=== PATIENT | male | born 1990 | race Caucasian/White ===

== ENCOUNTER 2017-03-08 13:55 | Inpatient (IN) | payer BC, OTHER ==
[~2017-03-08] VITALS: Ht 180.3 cm; Wt 79.4 kg
[2017-03-08] MEDS ORDERED: MYCO500T PO (14:31)
[2017-03-08] MEDS ORDERED: PRED2.5T PO (14:33)
[2017-03-08] MEDS ORDERED: TACR1CAP PO (14:35)
[2017-03-08] MEDS ORDERED: ONDANSETRON ODT 4 MG TAB.RAPDIS SL PRN (14:45)
[2017-03-08] MEDS ORDERED: MAG HYDROX/AL HYDROX/SIMETH 30 ML LIQUID UDC PO PRN (14:45)
[2017-03-08] MEDS ORDERED: ACETAMINOPHEN 325 MG TABLET PO PRN (14:45)
[2017-03-08] MEDS ORDERED: LORAZEPAM 2 MG/1 ML VIAL IM PRN (14:45)
[2017-03-08] MEDS ORDERED: ONDANSETRON 4 MG/2 ML VIAL IM PRN (14:45)
[2017-03-08] MEDS ORDERED: DICYCLOMINE HCL 20 MG TABLET PO PRN (14:45)
[2017-03-08] MEDS ORDERED: LOPERAMIDE HCL 2 MG CAPSULE PO PRN ×2 (14:45)
[2017-03-08] MEDS ORDERED: LORAZEPAM 1 MG TABLET PO PRN (14:45)
[2017-03-08] MEDS ORDERED: IBUPROFEN 400 MG TABLET PO PRN (14:45)
[2017-03-08] MEDS ORDERED: THIAMINE HCL 200 MG/2 ML VIAL IM ONE (14:45)
[2017-03-08] MEDS ORDERED: MAGNESIUM HYDROXIDE 30 ML LIQUID UDC PO PRN (14:45)
[2017-03-08] MEDS ORDERED: MIRALAX 17 GM POWD.PACK PO PRN (14:45)
[2017-03-08 14:46] VITALS: BP 136/88
[2017-03-08 15:30] LABS: *AMPHETAMINE, URINE NEGATIVE (NEGATIVE); *BARBITURATE, URINE NEGATIVE (NEGATIVE); *CANNABINOID, URINE POSITIVE (NEGATIVE); *COCCAINE, URINE NEGATIVE (NEGATIVE); *OPIATE, URINE NEGATIVE (NEGATIVE); *PHENCYCLIDINE SCREEN,URINE NEGATIVE (NEGATIVE)
--- NOTE | 2017-03-08 15:30 | NUR ---
ADMISSION NOTE Patient is 26 yr old male admitted at 15:00pm for supervised alcohol withdrawal. Patient is alert and oriented X4, full code, with NKA. On fall and seizure precaution (no history of seizure). Denies SOB, chest pain, skin is intact, gait is steady and ambulates independently. Patient reports history of kidney transplant in 2012. Patient has unknown family history as he is adopted and does not have any brothers or sisters. Patient is able to respond to questions, cooperative during the admission interview. Denies suicidal or homicidal ideation at this time. Initial CIWA is 7. Complained of nausea, tremors, body pain and diarrhea. Patient received PRN Ativan 1mg. Patient was oriented to unit, room and call lights, oriented to unit routines and activity groups, and provided with hygiene supplies. Pt stated he has no PCP at this time. Substance use history per patient report: 1) Alcohol - pt. reports last dose was today 03/08/17 and drank 2 shots of tequila and 1/2 bottle of red wine. Patient states he has been drinking 750ml-2.25L of wine daily X3 months . Pt. reports he started using at age 12. 2) Marijuana - pt. reports last dose was today 03/08/17 used 20mg of eligible and 1 joint. Pt. reports he started using at age 16. Rehab history: 1) [facility] in [place], [place] X30 days starting 06/25/15. 2) [facility] in [place] X6 months Dec-May 2016.
[2017-03-08 16:00] VITALS: BP 123/69
[2017-03-08] MEDS: LORAZEPAM 1 MG TABLET PO PRN ×2 (16:03→21:21)
--- NOTE | 2017-03-08 16:11 | NUR ---
PRN Pt with ciwa=7. Pt with some light perspiration on face and gross tremors of bilateral hands. Ativan 1mg po prn q2h ciwa 5-15 given and tolerated well.
[2017-03-08 16:49] LABS: BASOPHILS % (AUTO) 0.4 % (0.0-2.0); EOSINOPHILS # (AUTO) 0.1 K/uL (0.0-0.7); EOSINOPHILS % (AUTO) 0.9 % (0.0-7.0); HEMATOCRIT 44.4 % (36.7-47.1); LYMPHOCYTES # (AUTO) 3.7 K/uL (20.0-40.0); LYMPHOCYTES % (AUTO) 34.5 % (20.5-51.5); MEAN CORPUSCULAR HEMOGLOBIN 31.8 uug (23.8-33.4); MEAN CORPUSCULAR HGB CONC 34 g/dL (32.5-36.3); MONOCYTES # (AUTO) 0.8 K/uL (2.0-10.0); MONOCYTES % (AUTO) 7.6 % (0.0-11.0); NEUTROPHILS % (AUTO) 56.6 % (38.5-71.5); PLATELET COUNT (AUTO) 314 K/uL (152-348); RED BLOOD CELL COUNT(AUTO) 4.72 MIL/uL (4.06-5.63); RED CELL DISTRIBUTION WIDTH 13.9 % (12.1-16.2); WHITE BLOOD COUNT (AUTO) 10.6 K/uL (3.6-10.2)
[2017-03-08] MEDS ORDERED: PATIENT MAY USE OWN MED- MD OK PO SCH ×2 (17:00)
[2017-03-08 17:07] LABS: ETHANOL < 3 MG/DL (0-0)
[2017-03-08 17:10] LABS: ALANINE AMINOTRANSFERASE 31 U/L (16-63); ALBUMIN 4.2 g/dL (3.4-5.0); ALKALINE PHOSPHATASE 76 U/L (50-136); AMYLASE 69 U/L (25-115); ASPARTATE AMINOTRANSFERASE 30 U/L (15-37); BILIRUBIN,TOTAL 0.9 mg/dL (0.2-1.0); CARBON DIOXIDE 28 mmol/L (21-32); CHLORIDE 103 mmol/L (98-107); GFR 60 mL/min (>60); GLUCOSE 145 mg/dL (74-106); LIPASE 108 U/L (73-393); MAGNESIUM 1.7 mg/dL (1.8-2.4); SODIUM SERUM 137 mmol/L (136-145); UREA NITROGEN, BLOOD 18 mg/dL (7-18)
--- NOTE | 2017-03-08 17:11 | NUR ---
PRN Pt observed in bed with eyes closed resting, but easily arousable to name. ciwa=2.
[2017-03-08 17:13] LABS: CREATININE 1.4 mg/dL (0.6-1.3)
[2017-03-08 17:23] LABS: THYROID STIMULATING HORMONE 0.322 mIU/mL (0.358-3.740)
[2017-03-08 17:24] LABS: HIV-1 p24 ANTIGEN NON REACTIVE (NONREACTIVE); HIV-1/2 ANTIBODY NON REACTIVE (NONREACTIVE)
[2017-03-08] MEDS ORDERED: MAGNESIUM OXIDE 400 MG TABLET PO ONE (17:30)
[2017-03-08] MEDS: NICOTINE POLACRILEX 4 MG GUM-PK OF TEN BC PRN ×2 (18:28→21:21)
--- NOTE | 2017-03-08 18:28 | NUR ---
PRN NICOTINE GUM Patient received nicotine gum for craving. Will monitor patient.
--- NOTE | 2017-03-08 18:44 | NUR ---
END OF SHIFT Patient is 26 yr old male admitted at 15:00pm for supervised alcohol withdrawal. Patient is alert and oriented X4, full code, with NKA. On fall and seizure precaution (no history of seizure). Denies SOB, chest pain, skin is intact, gait is steady and ambulates independently. Patient received PRN Ativan 1mg, recheck CIWA was 2. Most recent assessment: CIWA: 7 (pt. reports sweating, anxiety, and tremors). Remains compliant with meds and treatment plans. PRN nicotine gum given for craving, effective. No BM since admission. Tolerating diet well. All needs met. Patient did not verbalize any concern or questions at this time. shock absorber installernight shift manager will continue to monitor patient.
--- NOTE | 2017-03-08 18:52 | NUR ---
END OF SHIFT Patient is 17 year-old female admitted medically supervised withdrawal from high dose benzodiapzepines. Patient is full code, allergic to penicillins and shellfish. On seizure precautions and regular diet. On 7-day Phenobarbital taper. Most recent assessment: CIWA: 1: Patient c/o mild anxiety. Remains compliant with meds and treatment plans. BM x2 this shift. Tolerating diet well without nausea/vomiting. Patient attended group activities this shift (i.e. yoga) and verbalized they were helpful. No PRN requested at this time. All needs met. Patient did not verbalize any concern or questions at this time. bed operatorsecurity shift manager will continue to monitor patient. Addendum: 03/08/17 at 1853 by MAILE CUELLAR RN WRONG PATIENT
--- NOTE | 2017-03-08 19:28 | NUR ---
REASSESSMENT PRN NICOTINE GUM Patient reports prn nicotine gum was effective.
--- NOTE | 2017-03-08 19:45 | NUR ---
Start of Shift Note: Report received from day shift nurse. Pt is a 26 yo male admitted on 03/08/17 for medically-supervised withdrawal from ETOH. Pt reports drinking 2-3 bottles of 750mL wine daily for 3 months. Pt also reports daily use of marijuana. Pt is to start a 5-day Ativan taper tomorrow. Last day shift CIWA=7, and PRN Ativan was given for an elevated CIWA score. Pt reports NKDA/NKFA. Pt is on a regular diet. Pt reports med hx: kidney transplant (2012). Pt received in room, and reports tremor, anxiety, diaphoresis. Bed is in low position and locked, side rails up x2, call light within reach. All needs attended and met at this time. Will continue to monitor.
[2017-03-08 20:00] VITALS: BP 137/80
[2017-03-08] MEDS: MYCOPHENOLATE 500MG PO SCH (21:20)
[2017-03-08] MEDS: TACROLIMUS 1 MG CAPSULE PO SCH (21:20)
--- NOTE | 2017-03-08 21:21 | NUR ---
PRN Ativan and PRN Nicotine Gum: Patient complains of anxiety, agitation, and diaphoresis. CIWA is 5. Administered PRN Ativan 1mg PO as ordered according to CIWA score. Patient complains of nicotine cravings. Administered PRN Nicotine gum as ordered along with gum usage instructions. Patient verbalizes understanding. Will reassess in one hour.
--- NOTE | 2017-03-08 22:25 | NUR ---
PRN Reassessment: Patient reports a reduction in anxiety, agitation, and diaphoresis. CIWA score decreased from 5 to 3 one hour after PRN Ativan 1mg PO administration. PRN Ativan effective. Patient reports that he is still having nicotine cravings and wants to smoke. Reinforced smoking cessation teaching but patient continues to verbalize need to smoke. PRN Nicotine gum not effective. Will continue to monitor and provide patient education.
[2017-03-08 23:00] VITALS: BP 161/111
--- NOTE | 2017-03-08 23:00 | NUR ---
PRN Ativan, PRN Clonidine, PRN Baclofen: Patient came to nurse's station complaining of an increase in ETOH withdrawal symptoms. Patient noted to be diaphoretic, moderately fidgety and agitated, with bilateral hand tremor. Patient reports sensitivity to light and sound. CIWA is 17. Upon assessment, BP was elevated at 161/111 and HR 83. Administered PRN Ativan 2mg PO as ordered according to CIWA score and administered PRN Clonidine 0.1mg PO as ordered for elevated BP. Patient also complains of myalgia in legs and back. Administered PRN Baclofen as ordered. Will continue to monitor for effectiveness.
[2017-03-08] MEDS: BACLOFEN 20 MG TABLET PO PRN (23:02)
[2017-03-08] MEDS: CLONIDINE HCL 0.1 MG TABLET PO PRN (23:02)
[2017-03-09] VITALS (9 sets, daily range): BP systolic 125–180; BP diastolic 74–108
--- NOTE | 2017-03-09 00:05 | NUR ---
PRN Reassessment: Patient reports a mild reduction of ETOH withdrawal symptoms, but is still experiencing tremor, anxiety, agitation, diaphoresis. CIWA decreased from 17 to 8 one hour after PRN Ativan 2mg PO administration. Will administer additional PRN Ativan according to current CIWA score. Patient's BP decreased from 161/111 to 159/104 one hour after PRN Clonidine 0.1mg PO administration. PRN Clonidine not effective. Will continue to monitor BP after additional PRN Ativan is administered. Patient reports that he is no longer experiencing myalgia in legs and back. PRN Baclofen effective. Will continue to monitor.
--- NOTE | 2017-03-09 00:50 | NUR ---
PRN Ativan: Patient continues to complain of diaphoresis, anxiety, agitation. Patient noted with fine bilateral hand tremor. CIWA is 8. BP is 159/104. Administered PRN Ativan 1mg PO as ordered according to CIWA score. Will continue to monitor.
[2017-03-09] MEDS: LORAZEPAM 1 MG TABLET PO PRN (00:53)
--- NOTE | 2017-03-09 01:50 | NUR ---
PRN Reassessment: Patient reports a reduction in anxiety, agitation, diaphoresis, and tremor. CIWA decreased from 8 to 2 one hour after PRN Ativan 1mg PO administration. BP decreased from 159/104 to 125/74. PRN Ativan effective. Will continue to monitor for s/s of withdrawal and elevated BP.
--- NOTE | 2017-03-09 04:00 | NUR ---
CIWA Deferred: CIWA assessment is deferred while patient sleeps. All safety precautions are in place. Will continue to monitor. Addendum: 03/09/17 at 0449 by MISSY ALVAREZ RN Amended: Links added.
--- NOTE | 2017-03-09 07:14 | NUR ---
End of Shift Note: Pt is a 26 yo male admitted to [facility] on 03/08/17 for medically-supervised withdrawal from ETOH. Pt reports drinking 2-3 bottles of 750mL wine daily for 3 months. Pt also reports daily use of marijuana. Pt is to start a 5-day Ativan taper today. S/S of withdrawal were managed this shift with multiple PRN medications: PRN Ativan 1mg was given x2 for CIWA=5 and CIWA=8, PRN Ativan 2mg was given for CIWA=17, and PRN Clonidine was given for elevated BP. PRN Baclofen was given for myalgia and PRN Nicotine gum was also given. Last CIWA=2 at 01:05. V/S stable throughout shift, with elevated BP of 161/111 and 159/104. Total fluid intake this shift: 1828 ml; output: urine x 2 and BM x 2. Pt currently in bed and slept 4 hours this shift. Pt endorsed to day shift nurse.
--- NOTE | 2017-03-09 07:30 | NUR ---
Start of shift note; Received report from night nurse. Patient is a 26 y/o male admitted on 03/08/17 for ETOH dependence. Patient to start on 5 day Ativan taper today. Patient has a history of kidney transplant and withdrawal induced seizures years ago. NKA, on full code status, regular diet. Patient last CIWA is 2 per endorsement. Bed in lowest position, call light within reach. Will continue to monitor patient.
[2017-03-09] MEDS ORDERED: TUBERCULIN,PURIF.PROT.DERIV. 5 TU/0.1 ML TEST ID ONE (09:00)
[2017-03-09] MEDS: MULTIVITAMINS,THERAPEUTIC TABLET PO SCH (09:29)
[2017-03-09] MEDS: FOLIC ACID 1 MG TABLET PO SCH (09:29)
[2017-03-09] MEDS: THIAMINE HCL 100 MG TABLET PO SCH (09:29)
[2017-03-09] MEDS: LORAZEPAM 1 MG TABLET PO SCH ×4 (09:29→20:41)
[2017-03-09] MEDS: PREDNISONE 5MG TABLET PO SCH (09:31)
[2017-03-09] MEDS: TACROLIMUS 1 MG CAPSULE PO SCH ×2 (09:31→20:41)
[2017-03-09] MEDS: MYCOPHENOLATE 500MG PO SCH ×2 (09:31→20:41)
--- NOTE | 2017-03-09 12:15 | NUR ---
Nurse Note; Patient noted to be anxious m/b patient pacing back and forth in the room and BP noted to be elevated 148/101, HR 82, offered patient Clonidine to help decrease BP and agitation, patient refused to take Clonidine, educated patient regarding the importance of compliance to medication regime, patient verbalized understanding. Scheduled Ativan taper dose given. MD notified of patient's vital signs, MD on unit and will evaluate patient. Will continue to monitor.
--- NOTE | 2017-03-09 13:15 | NUR ---
Nurse note; Rechecked patient's vital signs post Ativan medication. Patient's current BP of 132/82, HR 94. Patient appears calm and comfortable. Will continue to monitor patient.
--- NOTE | 2017-03-09 18:41 | NUR ---
End of shift note; Patient is AOX4. Patient is a 26 y/o male admitted on 03/08/17 for ETOH dependence. Patient to start on 5 day Ativan taper started today. Patient has a history of kidney transplant and withdrawal induced seizures years ago. NKA, on full code status, regular diet. Patient remained compliant with treatment plan and medication regime. Medications were effective in reducing withdrawal symptoms. All safety measures secured. Met all needs.
--- NOTE | 2017-03-09 19:10 | NUR ---
Start of Shift Patient Received. Patient is in activities room participating in group meeting. Patient is a 26 year old male, admitted on 03/08/17 for ETOH Dependence, under the care of Dr. Hinds. Patient is currently receiving a 5 day Ativan taper. He is able to verbalize no known allergies, wishes to be full code, following a regular diet, skin noted intact, placed on fall and seizure precautions. Patients verbalized of Kidney transplant in 2012 and history of seizure due to Klonopin withdrawal. Per endorsement, patient was noted with a CIWA of 6 at 1600. Patient is noted to be compliant with plan of care and participating in group meetings. All needs attended to promptly. Will continue plan of care as ordered.
--- NOTE | 2017-03-09 20:40 | NUR ---
Medication Administration Patient Returning from smoking patio and noted with a blood pressure of 180/104 and pulse of 68. Patient verbalizing increased anxiety and agitation. Patient states my blood pressure is always like this. Its normal when you have anxiety as well. ROSALIE noted 15. Routine medications administered which consisted of taper medication of Ativan 2mg and Norvasc 5mg. Will reassess patient to monitor blood pressure and effectiveness of medication.
[2017-03-09] MEDS: GABAPENTIN 300 MG CAPSULE PO SCH (20:41)
[2017-03-09] MEDS ORDERED: AMLODIPINE 5 MG TABLET PO ONE (21:00)
[2017-03-09] MEDS: hydrALAZINE HCL 25 MG TABLET PO PRN (22:39)
[2017-03-09] MEDS: HYDROXYZINE PAMOATE 25 MG CAPSULE PO PRN (22:40)
[2017-03-09] MEDS: NICOTINE POLACRILEX 4 MG GUM-PK OF TEN BC PRN (22:40)
[2017-03-09] MEDS: diphenhydrAMINE 50 MG CAPSULE PO PRN (22:40)
[2017-03-09] MEDS: BACLOFEN 20 MG TABLET PO PRN (22:40)
--- NOTE | 2017-03-09 22:40 | NUR ---
Routine Medication/ PRN Medication Administration Patient noted returning from smoking patio with client engagement manager. Patients vitals rendered and noted as 163/108 and pulse of 81. CIWA of 13. Patient verbalizing My anxiety is not as high as it was earlier. But I still have some anxiety. I have some muscle spasms in my lower legs, and Restless. I just really want to take and shower and go to bed. PRN Hydralazine, Vistaril, Baclofen, and Benadryl administered. Patient is also requesting PRN Nicotine Gum for increased cravings. Will continue to monitor for effectiveness of medication.
[2017-03-09] MEDS: CLONIDINE HCL 0.1 MG TABLET PO PRN (23:59)
--- NOTE | 2017-03-10 | NUR ---
0000 PRN Medication Reassessment/ PRN Medication Administration Vitals reassess and patient noted with a blood pressure of 160/97 and pulse of 79. CIWA noted to be 9. Patient able to verbalize "Im feeling a little better. Back spasms went away. My anxiety is tolerable. Im just still trying to go to sleep." PRN Clonidine administered for elevated blood pressure. Will continue to monitor effectiveness of medication.
[2017-03-10 00:50] VITALS: BP 147/87
--- NOTE | 2017-03-10 00:50 | NUR ---
PRN Medication Reassessment Patient noted in bed sleeping. Breathing even and non labored. Patient is easily arousable to verbal stimuli. Vital signs rendered and patient is noted with a blood pressure of 147/87 and pulse of 81. CIWA noted to be 4. PRN Clonidine noted to be effective.
[2017-03-10 04:40] VITALS: BP 124/80
--- NOTE | 2017-03-10 06:58 | NUR ---
End of Shift Patient is in bed sleeping. Breathing even and non labored. No signs of pain or discomfort noted. Patient is a 26 year old male, admitted on 03/08/17 for ETOH Dependence, under the care of Dr. Hinds. Patient is currently receiving a 5 day Ativan taper. No known allergies, full code, following a regular diet, skin noted intact, placed on fall and seizure precautions. Patient verbalized of Kidney transplant in 2012 and history of seizure due to Klonopin withdrawal. Patient was given PRN Hydralazine, Benadryl, Baclofen, Vistaril, Clonidine, and Nicotine Gum. Medications noted to be effective. All needs attended to promptly. Will endorse to continue plan of care as ordered.
--- NOTE | 2017-03-10 07:44 | NUR ---
Start of shift note; Received report from night nurse. Patient is a 26 y/o male admitted on 03/08/17 for ETOH dependence. Patient to start on 5 day Ativan taper today. Patient has a history of kidney transplant and withdrawal induced seizures years ago. NKA, on full code status, regular diet. Patient last CIWA is 1 per endorsement and patient slept for 5 hours. Bed in lowest position, call light within reach. Will continue to monitor patient.
[2017-03-10 07:48] LABS: BASOPHILS # (AUTO) 0.1 K/uL (0.0-8.0); BASOPHILS % (AUTO) 0.8 % (0.0-2.0); EOSINOPHILS # (AUTO) 0.2 K/uL (0.0-0.7); EOSINOPHILS % (AUTO) 2.6 % (0.0-7.0); HEMATOCRIT 46.5 % (36.7-47.1); HEMOGLOBIN 15.8 g/dL (12.5-16.3); LYMPHOCYTES # (AUTO) 4.5 K/uL (20.0-40.0); LYMPHOCYTES % (AUTO) 51.6 % (20.5-51.5); MEAN CORPUSCULAR HEMOGLOBIN 31.6 uug (23.8-33.4); MEAN CORPUSCULAR HGB CONC 34 g/dL (32.5-36.3); MEAN CORPUSCULAR VOLUME 93.3 fL (73.0-96.2); MONOCYTES % (AUTO) 11.1 % (0.0-11.0); NEUTROPHILS % (AUTO) 33.9 % (38.5-71.5); PLATELET COUNT (AUTO) 333 K/uL (152-348); RED BLOOD CELL COUNT(AUTO) 4.98 MIL/uL (4.06-5.63); RED CELL DISTRIBUTION WIDTH 13.7 % (12.1-16.2); WHITE BLOOD COUNT (AUTO) 8.8 K/uL (3.6-10.2)
[2017-03-10 08:00] VITALS: BP 106/65
[2017-03-10 08:05] LABS: CALCIUM 9.8 mg/dL (8.5-10.1); CREATININE 1.2 mg/dL (0.6-1.3); MAGNESIUM 1.5 mg/dL (1.8-2.4); PHOSPHOROUS 3.5 mg/dL (2.5-4.9)
[2017-03-10 08:15] LABS: THYROID STIMULATING HORMONE 0.889 mIU/mL (0.358-3.740)
[2017-03-10] MEDS: AMLODIPINE 5 MG TABLET PO SCH (09:13)
[2017-03-10] MEDS: GABAPENTIN 300 MG CAPSULE PO SCH ×3 (09:13→20:22)
[2017-03-10] MEDS: MULTIVITAMINS,THERAPEUTIC TABLET PO SCH (09:13)
[2017-03-10] MEDS: PREDNISONE 5MG TABLET PO SCH (09:13)
[2017-03-10] MEDS: MYCOPHENOLATE 500MG PO SCH ×2 (09:13→20:21)
[2017-03-10] MEDS: LORAZEPAM 1 MG TABLET PO SCH ×3 (09:13→20:22)
[2017-03-10] MEDS: TACROLIMUS 1 MG CAPSULE PO SCH ×2 (09:13→20:21)
[2017-03-10] MEDS: FOLIC ACID 1 MG TABLET PO SCH (09:13)
[2017-03-10] MEDS: THIAMINE HCL 100 MG TABLET PO SCH (09:13)
[2017-03-10] MEDS ORDERED: MAGNESIUM OXIDE 400 MG TABLET PO ONE (10:00)
--- NOTE | 2017-03-10 10:00 | NUR ---
New Order; reviewed new LAB results, ordered Mag-OX 800 mg PO one time order. Order given as per MD order. Will continue to monitor patient.
[2017-03-10 12:00] VITALS: BP 124/75
--- NOTE | 2017-03-10 14:47 | NUR ---
PRN medication; Patient is complaining of abdominal spasms/cramps, PRN Bentyl 20mg PO given. Will continue to monitor patient for effectiveness of medication.
--- NOTE | 2017-03-10 15:47 | NUR ---
Re-assessment; Patient denies abdominal spams/cramps at this time, PRN medication is effective.
[2017-03-10 16:00] VITALS: BP 132/88
--- NOTE | 2017-03-10 19:30 | NUR ---
Start of Shift Patient Received. Patient is in activities room participating in group meeting. Patient is a 26 year old male, admitted on 03/08/17 for ETOH Dependence, under the care of Dr. Hinds. Patient is currently receiving a 5 day Ativan taper. He is able to verbalize no known allergies, wishes to be full code, following a regular diet, skin noted intact, placed on fall and seizure precautions. Patients verbalized of Kidney transplant in 2012 and history of seizure due to Klonopin withdrawal. Per endorsement, Patients vital signs remained within normal limits throughout the shift. Patients labs resulted and Magnesium supplemented. Patient was given PRN Bentyl and noted effective. Patient was noted with a CIWA of 4 at 1600. Patient is noted to be compliant with plan of care and participating in group meetings. All needs attended to promptly. Will continue plan of care as ordered.
[2017-03-10 20:16] VITALS: BP 158/102
[2017-03-10] MEDS: hydrALAZINE HCL 25 MG TABLET PO PRN (20:22)
[2017-03-10] MEDS: BACLOFEN 20 MG TABLET PO PRN (20:22)
--- NOTE | 2017-03-10 20:30 | NUR ---
PRN Medication Administration Patient returning from smoking patio and noted with elevated blood pressure of 158/102 and pulse of 84. Patient also verbalizing increased muscle spasms and tension. PRN Baclofen and Hydralazine administered with routine medications. Will continue to monitor
[2017-03-11] VITALS (7 sets, daily range): BP systolic 124–164; BP diastolic 69–104
[2017-03-11] MEDS: HYDROXYZINE PAMOATE 25 MG CAPSULE PO PRN ×2 (00:12→12:52)
[2017-03-11] MEDS: CLONIDINE HCL 0.1 MG TABLET PO PRN ×2 (00:12→12:52)
[2017-03-11] MEDS: diphenhydrAMINE 50 MG CAPSULE PO PRN (00:12)
--- NOTE | 2017-03-11 00:15 | NUR ---
PRN Medication Administration Patient is continuously noted going outside for cigarette breaks. Vital signs rendered and noted as 164/104 and pulse of 102. Patient verbalized I have some anxiety and I cant sleep. PRN Vistaril, Benadryl, and Clonidine administered. Will continue to monitor for effectiveness of medication
--- NOTE | 2017-03-11 01:24 | NUR ---
PRN Medication Reassessment Patients vitals rendered and blood pressure noted as 152/97 and pulse of 90. PRN clonidine noted to be effective. Patient verbalized "Im going to try and go to sleep now. My anxiety level is much better." PRN Vistaril and Benadryl noted to be effective. Will continue to monitor.
--- NOTE | 2017-03-11 07:06 | NUR ---
End of Shift Patient is in bed sleeping. Breathing even and non labored. No signs of pain or discomfort noted. Patient is a 26 year old male, admitted on 03/08/17 for ETOH Dependence, under the care of Dr. Hinds. Patient is currently receiving a 5 day Ativan taper. No known allergies, full code, following a regular diet, skin noted intact, placed on fall and seizure precautions. Patient verbalized of Kidney transplant in 2012 and history of seizure due to Klonopin withdrawal. Patient was given PRN Baclofen, Hydralazine, Benadryl, Vistaril, Clonidine. Medications noted to be effective. All needs attended to promptly. Will endorse to continue plan of care as ordered.
--- NOTE | 2017-03-11 08:20 | NUR ---
START OF SHIFT: RECEIVED PT A/O X 4. HE STATES HE SLEPT WELL. ATIVAN TAPER IN PROGRESS. CIWA 3. HE REPORTS SOME ANXIETY, NIGHT SWEATS AND RESTLESSNESS. CIWA 3. VS WNL. ENCOURAGED INCREASED FLUIDS TO ASSIST IN FACILITATING DETOX PROCESS. ENCOURAGE GROUP ATTENDANCE TO IMPROVE COPING SKILLS AND PREVENT RELAPSE. WILL CONTINUE TO MONITOR AND PROVIDE SAFE AND SUPPORTIVE ENVIRONMENT.
[2017-03-11] MEDS: FOLIC ACID 1 MG TABLET PO SCH (09:18)
[2017-03-11] MEDS: MULTIVITAMINS,THERAPEUTIC TABLET PO SCH (09:18)
[2017-03-11] MEDS: LORAZEPAM 1 MG TABLET PO SCH ×4 (09:18→21:09)
[2017-03-11] MEDS: THIAMINE HCL 100 MG TABLET PO SCH (09:18)
[2017-03-11] MEDS: AMLODIPINE 5 MG TABLET PO SCH (09:19)
[2017-03-11] MEDS: GABAPENTIN 300 MG CAPSULE PO SCH ×3 (09:19→21:09)
[2017-03-11] MEDS: TACROLIMUS 1 MG CAPSULE PO SCH ×2 (09:20→21:10)
[2017-03-11] MEDS: PREDNISONE 5MG TABLET PO SCH (09:20)
[2017-03-11] MEDS: MYCOPHENOLATE 500MG PO SCH ×2 (09:20→21:10)
--- NOTE | 2017-03-11 13:00 | NUR ---
PT REPORTS ANXIETY, AGITATION AND RESTLESSNESS. BP ELEVATED. PRN VISTARIL AND CLONIDINE GIVEN WITH SCHEDULED ATIVAN TO MANAGE S/S OF W/D.
--- NOTE | 2017-03-11 13:30 | NUR ---
PT REPORTS HIS ANXIETY HAS LESSENED AND HIS BP IS LOWER. PRN MEDS EFFECTIVE. WILL CONTINUE TO MONITOR.
--- NOTE | 2017-03-11 18:57 | NUR ---
END OF SHIFT: PT CONTINUES ON ATIVAN TAPER. LAST CIWA 5. HIS MOOD IS LABILE AND HE CAN BE IRRITABLE AT TIMES. HE REPORTED ANXIETY EARLIER IN SHIFT. PRN VISTARIL AND CLONIDINE GIVEN AND EFFECTIVE. LAST BP WNL. HE ASKED TO NOT BE DISTURBED FOR A SOLID HOUR AFTER 1700 MEDS WERE ADMINISTERED. EDUCATED HIM ON THE POLICY OF Q 15 MIN CHECKS AND ASKED BUSINESS ENGLISH INSTRUCTOR TO DO Q'S QUIETLY. HE ATTENDED GROUPS AND SOME ACTIVITIES. WILL PASS SHIFT REPORT TO ONCOMING NIGHT NURSE.
--- NOTE | 2017-03-11 20:00 | NUR ---
START OF SHIFT NOTE RECEIVED PATIENT ALERT AND ORIENTED X 4. RESPIRATION EVEN AND UNLABORED. PATIENT REPORTS ANXIETY, SWEATING. NOTED IRRITABLE . DENIES ANY PAIN. NO N/V/D. DENIES SI/HI. PATIENT IS ON 3RD DAY OF HIS ATIVAN ATIVAN TAPER., TOLERATED WELL AND NO ADVERSE REACTION. PER DAY SHIFT NURSE, PATIENT WAS GIVEN CLONIDINE AND VISTARIL DURING THE DAY. LAST CIWA 5. ON FALL/SEIZURE PRECAUTION. SAFETY MEASURES IN PLACE. CALL LIGHT IN REACH. WILL CONTINUE TO MONITOR.
[2017-03-11] MEDS: ENALAPRIL 5 MG TABLET PO SCH (21:10)
[2017-03-12] VITALS: BP 128/80
[2017-03-12] MEDS: HYDROXYZINE PAMOATE 25 MG CAPSULE PO PRN ×2 (01:44→12:52)
[2017-03-12] MEDS: diphenhydrAMINE 50 MG CAPSULE PO PRN (01:44)
--- NOTE | 2017-03-12 01:44 | NUR ---
PRN VISTARIL/BENADRYL ADMINISTRATION PATIENT C/O ANXIETY AND UNABLE TO SLEEP. PRN VISTARIL AND BENADRYL GIVEN. WILL MONITOR FOR EFFECTIVENESS
--- NOTE | 2017-03-12 02:44 | NUR ---
PRN VISTARIL/BENADRYL RE-ASSESSMENT PATIENT IN BED, ASLEEP. RESPIRATION EVEN AND UNLABORED. NO S/S DISTRESS. SAFETY MEASURES IN PLACE.C ALL LIGHT IN REACH. WILL CONTINUE TO MONITOR.
[2017-03-12 03:05] LABS: HCV AB <0.1 s/co ratio (0.0-0.9); HEPATITIS B CORE AB, IgM Negative (Negative); HEPATITIS B SURFACE AG Negative (Negative)
[2017-03-12 04:00] VITALS: BP 126/81
--- NOTE | 2017-03-12 07:16 | NUR ---
END OF SHIFT NOTE MONITORED PATIENT THROUGHOUT THE NIGHT. PATIENT REMAIN ALERT AND ORIENTED X 4. RESPIRATION EVEN AND UNLABORED. PATIENT NOTED RESTLESS, C/O ANXIETY AND SWEATING. NO N/V. DENIES PAIN DURING SHIFT. PATIENT IS A 26 YEAR OLD MALE, ADMITTED FOR ETOH DEPENDENCE. PATIENT IS ON 3RD DAY OF HIS ON 5 DAYS ATIVAN TAPER., TOLERATED WELL. NO ADVERSE REACTION. PATIENT REPORTED PMH OF KIDNEY TRANSPLANT (2012) AND SEIZURE X1 R/T KLONOPIN W/D. PATIENT IS FULL CODE, REGULAR DIET AND NO KNOWN ALLERGY. SKIN INTACT. ON FALL/SEIZURE PRECAUTION. PATIENT WAS GIVEN VISTARIL AND BENADRYL AT 0144 DUE TO ANXIETY AND INABILITY TO STAY ASLEEP,EFFECTIVE. SAFETY MEASURES IN PLACE. CALL LIGHT IN REACH. WILL CONTINUE TO MONITOR. SLEPT 4 HOURS. FLUID INTAKE 1,520 ML. VOIDED X 2 . NO BM. LAST CIWA 1.
[2017-03-12 07:37] LABS: CALCIUM 9.8 mg/dL (8.5-10.1); CREATININE 1.2 mg/dL (0.6-1.3); MAGNESIUM 1.6 mg/dL (1.8-2.4); POTASSIUM 4.2 mmol/L (3.5-5.1)
[2017-03-12 08:00] VITALS: BP 121/72
--- NOTE | 2017-03-12 08:15 | NUR ---
START OF SHIFT: RECEIVED PT A/O X 4. HE PRESENTS WITH ANXIOUS AND IRRITABLE MOOD AND LABILE AFFECT. HE REPORTS HE DID NOT FALL ASLEEP UNTIL 0400 THIS AM AND SLEPT RESTLESS. HE REPORTS SOME NIGHT SWEATS, ANXIETY AND RESTLESSNESS. ATIVAN TAPER IN PROGRESS. CIWA 6. HYPOMAGNESIA NOTED.MAGNESIUM REPLACED LAST NIGHT PER SHIFT REPORT.PT STATES HE WILL ATTEND GROUPS TODAY. ENCOURAGED INCREASED FLUIDS TO ASSIST IN FACILITATING DETOX PROCESS. WILL CONTINUE TO MONITOR.
[2017-03-12] MEDS: MULTIVITAMINS,THERAPEUTIC TABLET PO SCH (08:29)
[2017-03-12] MEDS: AMLODIPINE 5 MG TABLET PO SCH (08:30)
[2017-03-12] MEDS: THIAMINE HCL 100 MG TABLET PO SCH (08:30)
[2017-03-12] MEDS: GABAPENTIN 300 MG CAPSULE PO SCH ×3 (08:30→21:47)
[2017-03-12] MEDS: LORAZEPAM 1 MG TABLET PO SCH ×3 (08:30→21:47)
[2017-03-12] MEDS: FOLIC ACID 1 MG TABLET PO SCH (08:32)
[2017-03-12] MEDS: PREDNISONE 5MG TABLET PO SCH (08:32)
[2017-03-12] MEDS: TACROLIMUS 1 MG CAPSULE PO SCH ×2 (09:05→21:51)
[2017-03-12] MEDS: MYCOPHENOLATE 500MG PO SCH ×2 (09:05→21:47)
[2017-03-12] MEDS ORDERED: MAGNESIUM OXIDE 400 MG TABLET PO ONE (10:30)
[2017-03-12] MEDS ORDERED: LORAZEPAM 1 MG TABLET PO ONE (11:15)
--- NOTE | 2017-03-12 11:25 | NUR ---
ONE TIME DOSE ATIVAN 2 MG PO GIVEN PER MD FOR S/S OF W/D WHICH INCLUDE SEVERE AGITATION, PANIC AND SEVERE RESTLESSNESS. CIWA 11 AT 1125.
--- NOTE | 2017-03-12 11:55 | NUR ---
ATIVAN EFFECTIVE AEB CIWA 6
[2017-03-12 12:00] VITALS: BP 121/70
--- NOTE | 2017-03-12 12:57 | NUR ---
LUCERO VISTARIL GIVEN PT REPORTS HE FEELS ANXIOUS AND DISTRAUGHT HE JUST LEARNED A FRIEND OF HIS . WILL MONITOR EFFECTIVENESS.
[2017-03-12] MEDS ORDERED: QUETIAPINE FUMARATE 25 MG TABLET PO ONE ×2 (13:30→22:45)
--- NOTE | 2017-03-12 15:10 | NUR ---
Client requested an individual session in the a.m. Clinician asked client to first put his clothes on-he was wearing house-coat. Client declined session stating he would shower. At lunch-time client (in the hallway) confrontationally demanded a session later today. Clinician agreed to meet after lunch. Later on clinician offered an individual session and client responded "I don't need one!".
[2017-03-12 16:00] VITALS: BP 117/66
--- NOTE | 2017-03-12 19:17 | NUR ---
END OF SHIFT: PT CONTINUES ON ATIVAN TAPER. LAST CIWA 4. HE WAS GIVEN A ONE TIME DOSE OF ATIVAN AND AA ONE TIME DOSE OF SEROQUEL TODAY HE BECAME VERY AGITATED AND HYSTERICAL ABOUT A FRIENDS . HE FOUND OUT ABOUT IT AFTER MAKING A PHONE CALL TODAY.OFFERED SUPPORT. PT CAN BE INAPPROPRIATE AT TIMES WITH SEXUAL COMMENTS. STRONG BOUNDARIES SET. WILL PASS SHIFT REPORT TO ONCOMING NIGHT NURSE.
[2017-03-12 20:00] VITALS: BP 132/90
--- NOTE | 2017-03-12 20:00 | NUR ---
Start of Shift Patient is a 26 year old male, admitted for ETOH Dependence. Patients verbalized of Kidney transplant in 2012 and history of seizure due to Klonopin withdrawal. Pt placed on a 5-day Ativan tape, started om 03/09/2017 and tolerates well. Pt with NKA, is Full Code, and on Regular Diet. Pt is AAOx4, no significant anxiety noted and with no SOB observed. Pt is ambulatory with steady gait, and with intact skin. Fall, universal and safety prec in place. Call light within reach. Kept pt warm, dry and comfortable. All needs met. Latest CIWA=5. Will continue to monitor.
[2017-03-12] MEDS: ENALAPRIL 5 MG TABLET PO SCH (21:48)
[2017-03-12] MEDS ORDERED: HYDROXYZINE PAMOATE 25 MG CAPSULE PO PRN (22:00)
--- NOTE | 2017-03-12 22:01 | NUR ---
RN note MD Communication Pt c/o feeling anxious more than the usual r/t finding out of a friend's . Dr. Chau called and informed and ordered increased dose of Vistaril to 50 mg PO and frequency changed to Q4H. Entered at [facility].
--- NOTE | 2017-03-12 22:33 | NUR ---
RN note One-time Seroquel Pt c/o feeling increasingly depressed. Spoke with Dr. Wan and ordered one-time Seroquel 50 mg PO. [facility].
--- NOTE | 2017-03-12 22:41 | NUR ---
RN note Seroquel Administered Seroquel 50 mg PO one-time as ordered.
[2017-03-12] MEDS ORDERED: QUETIAPINE FUMARATE 25 MG TABLET PO SCH (22:45)
[2017-03-12] MEDS ORDERED: QUETIAPINE FUMARATE 25 MG TABLET ONE (22:46)
--- NOTE | 2017-03-12 23:45 | NUR ---
RN note reassess Pt verbalized "feeling better".
[2017-03-13] VITALS: BP 123/69
[2017-03-13 04:00] VITALS: BP 130/74
--- NOTE | 2017-03-13 07:12 | NUR ---
End of Shift Patient is a 26 year old male, admitted for ETOH Dependence. Patients verbalized of Kidney transplant in 2012 and history of seizure due to Klonopin withdrawal. Pt placed on a 5-day Ativan tape, started om 03/09/2017 and tolerates well. Pt with NKA, is Full Code, and on Regular Diet. Pt is AAOx4, no significant anxiety noted and with no SOB observed. Pt is ambulatory with steady gait, and with intact skin. Fall, universal and safety prec in place. Call light within reach. Kept pt warm, dry and comfortable. All needs met. Latest CIWA=3, slept for 5 hours. Endorsed to AM shift nurse for continuity of care.
[2017-03-13 08:00] VITALS: BP 113/65
[2017-03-13] MEDS: FOLIC ACID 1 MG TABLET PO SCH (09:30)
[2017-03-13] MEDS: AMLODIPINE 5 MG TABLET PO SCH (09:30)
[2017-03-13] MEDS: GABAPENTIN 300 MG CAPSULE PO SCH ×3 (09:30→21:03)
[2017-03-13] MEDS: MULTIVITAMINS,THERAPEUTIC TABLET PO SCH (09:30)
[2017-03-13] MEDS: THIAMINE HCL 100 MG TABLET PO SCH (09:30)
[2017-03-13] MEDS: TACROLIMUS 1 MG CAPSULE PO SCH ×2 (09:31→21:04)
[2017-03-13] MEDS: LORAZEPAM 1 MG TABLET PO SCH ×2 (09:31→21:03)
[2017-03-13] MEDS: MYCOPHENOLATE 500MG PO SCH ×2 (09:31→21:04)
[2017-03-13] MEDS: PREDNISONE 5MG TABLET PO SCH (09:32)
--- NOTE | 2017-03-13 10:00 | NUR ---
START OF SHIFT Report received from administrative office clerk nurse. Received patient laying in his bed. Patient is 26 yr old male admitted for supervised alcohol withdrawal. Patient is alert and oriented X4, full code, with NKA. On fall and seizure precaution. Denies SOB, chest pain, skin is intact, gait is steady and ambulates independently. On 5-day Ativan taper. On assessment this AM: CIWA: 4. Patient reports anxiety, agitation and tremors. Patient appeared irritated when awakened during rounds. Med and treatment compliant. Scheduled Ativan given as ordered. Patient encouraged patient to participate in group meetings. Patient able to verbalize needs and express thoughts and feelings. All needs met at this time. Patient later apologized for his irritability at beginning of shift. Patient is noted dancing in his room, also noted interacting well with other patients. Call lights within reach and bed at low setting. Will continue to monitor patient.
[2017-03-13 12:00] VITALS: BP 133/91
[2017-03-13 16:00] VITALS: BP 133/75
[2017-03-13] MEDS: buPROPion XL 150 MG TAB.SR.24H PO SCH (16:21)
--- NOTE | 2017-03-13 19:08 | NUR ---
END OF SHIFT Patient is 26 yr old male admitted for supervised alcohol withdrawal. Patient is alert and oriented X4, full code, with NKA. On fall and seizure precaution (no history of seizure). Denies SOB, chest pain, skin is intact, gait is steady and ambulates independently. Most recent assessment: CIWA: 2 (pt. reports mild anxiety and tremors). Attending group [employer], plays games at the [employer] during fresh air break and reports he feels much better after the activities. Remains compliant with meds and treatment plans. BM X2. Tolerating diet well. MD was notified about patient's elevated HR. HR at 4pm was 120, manual retake was 111, patient denies chest pain at this time, complains that the unit is too warm. MD also informed that patient drank about 5.4L L of fluids this shift, voided X 10, endorsed to receiving RN to continue to monitor patient and notify MD if HR >120 as discussed with MD. All needs met. Patient did not verbalize any concern or questions at this time. teletypistmaintenance mechanic 2nd shift will continue to monitor patient. Addendum: 03/13/17 at 1925 by MAILE CUELLAR RN Patient denies having any anxiety at this time and did not want to take any prn when offered.
--- NOTE | 2017-03-13 19:08 | NUR ---
START OF SHIFT NOTE Patient endorsed by outgoing day shift nurse. SBAR report received. Patient is a 26 year old male admitted to [facility] on 03/08/17 for Alcohol withdrawal, placed on 5 Day Ativan Taper started on 03/09/17. Patient remains compliant with treatment plan, medications, and diet regime. NKA, Full Code, Cardiac Diet, Fall and Seizures Precautions. Seizures History. Past Medical History: Alcohol use disorder; Sedative hypnotic use disorder; Opioid use disorder; Cocaine use disorder; Cannabis use disorder; Nicotine dependence; S/p kidney transplant. Past Surgical History: Kidney transplant 2012; Left humerus ORIF; Splenectomy; Partial bowel resection. Substance Use: Alcohol: " 2-3 bottles of wine, 750 ml, daily since December,. Last used 2 shot Tequila and 1/2 bottle Red wine on 03/08/17 at 10:30 ". Marijuana since 2006 1/2-3/4 gram daily. Last used 20 mg of eligible and 1 joint on 03/08 at 10:30". Past Hospitalization/Treatment History: "[facility]" in [place], [place], 30 days since 06/25/15". "[facility]" in [place], 6 months on December - May,". Upon endorsement patient 's alert and oriented x4, cooperative, speech clear and soft . CIWA 7: patient 's anxious, agitated, c/o sweating. Patient's tremors that can felt. . Patient denied N/V, and diarrhea. Patient denied SI/HI. VS: T: 98'4; HR: 98; BP: 144/95; RA O2SAT 96%; RR: 19. Patient denied pain. Pain level "0/10". Breathing is unlabored and even. Patient denied SOB, and chest pain. Lung Sounds are clear. Heart rate regular. BS is active in all x 4 quadrants. Skin is intact, warm and moist by touch. Patient was encouraged fluids intake. Patient attended groups activities. Safety measure in the place by hospital policy: Call light within reach, bed in the lowest position and locked, padded rails up x2.Will continue to monitor.
[2017-03-13 20:00] VITALS: BP 144/95
[2017-03-13] MEDS: QUETIAPINE FUMARATE 25 MG TABLET PO PRN (21:02)
--- NOTE | 2017-03-13 21:02 | NUR ---
PRN SEROQUEL PO ADMINISTRATION Patient c/o insomnia, and asked PRN Seroquel PO. Patient was assessed. VS WNL. Patient was educated for actions, adverse reactions, and side effects of Seroquel. Patient returned back her knowledge by verbalizing understanding. PRN Seroquel PO was administrated as ordered with full glass of water. Patient tolerated well. Safety measure in the place by hospital policy: Call light within reach, bed in the lowest position and locked, padded rails up x2. Will continue to monitor. Addendum: 03/14/17 at 0613 by BLAYNE WASHINGTON RN Patient returned back his knowledge by verbalizing understanding.
[2017-03-13] MEDS: PROPRANOLOL HCL 20 MG TABLET PO SCH (21:03)
[2017-03-13] MEDS: ENALAPRIL 5 MG TABLET PO SCH (21:12)
--- NOTE | 2017-03-13 21:49 | NUR ---
PRN VISTARIL PO ADMINISTRATION Patient c/o increased anxiety. PRN Vistaril PO was discussed. Patient was assessed. VS WNL. Patient was educated for actions, adverse reactions, and side effects of VIstaril. Patient returned back his knowledge by verbalizing understanding. PRN Vistarill PO was administrated as ordered with full glass of water. Patient tolerated well. Safety measure in the place by hospital policy: Call light within reach, bed in the lowest position and locked, padded rails up x2. Will continue to monitor.
--- NOTE | 2017-03-13 22:02 | NUR ---
REASSESSMENT Patient is sleeping. Breathing is even and unlabored. RR:16. PRN Seroquel PO was effective. Safety measure in the place by hospital policy:Call light within reach, bed in the lowest position and locked, padded rails up x2.Will continue to monitor.
--- NOTE | 2017-03-13 22:49 | NUR ---
REASSESSMENT Patient is sleeping. Breathing is even and unlabored. RR: 14. PRN Zofran PO was effective. Safety measure in the place by hospital policy: Call light within reach, bed in the lowest position and locked, padded rails up x2. Will continue to monitor.
--- NOTE | 2017-03-14 | NUR ---
VS/CIWA/COWS Deferred Assessment deferred d/t patient refusal, patient is sleeping. No S/S of distress noted. Breathing is unlabored and even. Safety measure in the place by hospital policy: Call light within reach, bed in the lowest position and locked, padded rails up x2. Will continue to monitor.
--- NOTE | 2017-03-14 07:11 | NUR ---
END OF SHIFT NOTE Patient endorsed by outgoing day shift nurse. SBAR report received. Patient is a 26 year old male admitted to [facility] on 03/08/17 for Alcohol withdrawal, placed on 5 Day Ativan Taper started on 03/09/17. Patient remains compliant with treatment plan, medications, and diet regime. NKA, Full Code, Cardiac Diet, Fall and Seizures Precautions. Seizures History. Past Medical History: Alcohol use disorder; Sedative hypnotic use disorder; Opioid use disorder; Cocaine use disorder; Cannabis use disorder; Nicotine dependence; S/p kidney transplant. Past Surgical History: Kidney transplant 2012; Left humerus ORIF; Splenectomy; Partial bowel resection. Substance Use: Alcohol: " 2-3 bottles of wine, 750 ml, daily since December,. Last used 2 shot Tequila and 1/2 bottle Red wine on 03/08/17 at 10:30 ". Marijuana since 2006 1/2-3/4 gram daily. Last used 20 mg of eligible and 1 joint on 03/08 at 10:30". Past Hospitalization/Treatment History: "[facility] [place]" in [place], [place], 30 days since 06/25/15". "[facility]" in [place], 6 months on December - May,". Last CIWA decreased from 7 to 6: patient 's presented anxious, agitated, with barely sweating, and tremors that can felt. Patient denied N/V, and diarrhea. Patient denied SI/HI. VS WNL. Patient denied pain. Pain level "0/10". PRN Seroquel PO and PRN Vistaril PO were effective. Patient slept 6 hours 30 minutes, intake 1,972 ml, voided x 4. Skin is intact, warm and moist by touch. Patient attended groups activities. Safety measure in the place by hospital policy: Call light within reach, bed in the lowest position and locked, padded rails up x2. Patient endorsed to day shift nurse in stable condition. SBAR report given.
[2017-03-14 08:00] VITALS: BP 138/78
--- NOTE | 2017-03-14 08:09 | NUR ---
START OF SHIFT Report received from casino shift manager nurse. Received patient laying in his bed. Patient is 26 yr old male admitted for supervised alcohol withdrawal. Patient is alert and oriented X4, full code, with NKA. On fall and seizure precaution. Patient denies SOB/chest pain/n/v/diarrhea/anxiety/sweating/headache/any hallucinations. Vitals WNL. Skin is intact, gait is steady and ambulates independently. On assessment this AM: CIWA: 2. Patient reports mild tremors. Patient reports slept better last night but wants to go back to sleep for a bit more before AM med pass. Patient states he does not want to take his Bupropion this morning as it lowers his seizure threshold because he was coming off Ativan and had discussed it with his MD yesterday, will notify MD. EKG pending, will follow up. Patient encouraged patient to participate in group meetings. Able to verbalize needs and express thoughts and feelings. All needs met at this time. Call lights within reach and bed at low setting. Will continue to monitor patient. Addendum: 03/14/17 at 0943 by MAILE CUELLAR RN Patient refused Welbutrin and Propanolol, notified. EKG in chart, provided to MD this AM for review.
[2017-03-14] MEDS: PROPRANOLOL HCL 20 MG TABLET PO SCH (09:00)
[2017-03-14] MEDS: buPROPion XL 150 MG TAB.SR.24H PO SCH (09:00)
[2017-03-14] MEDS: PREDNISONE 5MG TABLET PO SCH (09:28)
[2017-03-14] MEDS: MYCOPHENOLATE 500MG PO SCH ×2 (09:28→20:31)
[2017-03-14] MEDS: AMLODIPINE 5 MG TABLET PO SCH (09:29)
[2017-03-14] MEDS: GABAPENTIN 300 MG CAPSULE PO SCH ×3 (09:29→20:31)
[2017-03-14] MEDS: MULTIVITAMINS,THERAPEUTIC TABLET PO SCH (09:29)
[2017-03-14] MEDS: FOLIC ACID 1 MG TABLET PO SCH (09:29)
[2017-03-14] MEDS: THIAMINE HCL 100 MG TABLET PO SCH (09:29)
[2017-03-14] MEDS: TACROLIMUS 1 MG CAPSULE PO SCH ×2 (09:30→20:32)
[2017-03-14 12:00] VITALS: BP 157/90
[2017-03-14 14:15] LABS: *AMPHETAMINE, URINE NEGATIVE (NEGATIVE); *BARBITURATE, URINE NEGATIVE (NEGATIVE); *CANNABINOID, URINE POSITIVE (NEGATIVE); *COCCAINE, URINE NEGATIVE (NEGATIVE); *OPIATE, URINE NEGATIVE (NEGATIVE); *PHENCYCLIDINE SCREEN,URINE NEGATIVE (NEGATIVE)
[2017-03-14] MEDS ORDERED: NICO4GUM BC (15:59)
[2017-03-14] MEDS ORDERED: HYDR-3895 PO (15:59)
[2017-03-14] MEDS ORDERED: AMLO5TAB2 PO (15:59)
[2017-03-14] MEDS ORDERED: QUET25TA PO (15:59)
[2017-03-14] MEDS ORDERED: Gabapentin PO (15:59)
[2017-03-14] MEDS ORDERED: ENAL5TAB PO (15:59)
[2017-03-14 16:00] VITALS: BP 150/96
--- NOTE | 2017-03-14 19:05 | NUR ---
END OF SHIFT Patient is 26 yr old male admitted for supervised alcohol withdrawal. Patient is alert and oriented X4, full code, with NKA. On fall and seizure precaution (no history of seizure). Denies SOB, chest pain, skin is intact, gait is steady and ambulates independently. Most recent assessment: CIWA: 1 (pt. reports mild tremors). Attending group activities. Refused routine propranolol and gabapentin. Pending discharge tomorrow. BM X1. Tolerating diet well. All needs met. Patient did not verbalize any concern or questions at this time. night warehouse selectornight warehouse selector will continue to monitor patient.
--- NOTE | 2017-03-14 19:05 | NUR ---
END OF SHIFT NOTE Patient endorsed by outgoing day shift nurse. SBAR report received. Patient is a 26 year old male admitted to [facility] on 03/08/17 for Alcohol withdrawal, placed on 5 Day Ativan Taper started on 03/09/17. Patient remains compliant with treatment plan, medications, and diet regime. NKA, Full Code, Cardiac Diet, Fall and Seizures Precautions. Seizures History. Past Medical History: Alcohol use disorder; Sedative hypnotic use disorder; Opioid use disorder; Cocaine use disorder; Cannabis use disorder; Nicotine dependence; S/p kidney transplant. Past Surgical History: Kidney transplant 2012; Left humerus ORIF; Splenectomy; Partial bowel resection. Substance Use: Alcohol: " 2-3 bottles of wine, 750 ml, daily since December,. Last used 2 shot Tequila and 1/2 bottle Red wine on 03/08/17 at 10:30 ". Marijuana since 2006 1/2-3/4 gram daily. Last used 20 mg of eligible and 1 joint on 03/08 at 10:30". Past Hospitalization/Treatment History: "[facility] [place]" in [place], [place], 30 days since 06/25/15". "[facility]" in [place], 6 months on December - May,". Last CIWA decreased from 7 to 6: patient 's presented anxious, agitated, with barely sweating, and tremors that can felt. Patient denied N/V, and diarrhea. Patient denied SI/HI. VS WNL. Patient denied pain. Pain level "0/10". PRN Seroquel PO and PRN Vistaril PO were effective. Patient slept 6 hours 30 minutes, intake 1,972 ml, voided x 4. Skin is intact, warm and moist by touch. Patient attended groups activities. Patient will discharging tomorrow, 03/15/17. UDS results placed in the chart. Safety measure in the place by hospital policy: Call light within reach, bed in the lowest position and locked, padded rails up x2.Will continue to monitor. Addendum: 03/15/17 at 0307 by BLAYNE WASHINGTON RN START OF SHIFT NOTE
[2017-03-14 20:00] VITALS: BP 127/78
[2017-03-14] MEDS: QUETIAPINE FUMARATE 25 MG TABLET PO PRN (20:31)
--- NOTE | 2017-03-14 20:31 | NUR ---
PRN SEROQUEL PO ADMINISTRATION Patient c/o insomnia, and asked PRN Seroquel PO. Patient was assessed. VS WNL. Patient was educated for actions, adverse reactions, and side effects of Seroquel. Patient returned back her knowledge by verbalizing understanding. PRN Seroquel PO was administrated as ordered with full glass of water. Patient tolerated well. Safety measure in the place by hospital policy: Call light within reach, bed in the lowest position and locked, padded rails up x2. Will continue to monitor.
[2017-03-14] MEDS: ENALAPRIL 5 MG TABLET PO SCH (20:33)
--- NOTE | 2017-03-15 07:28 | NUR ---
END OF SHIFT NOTE Patient endorsed by day shift nurse. SBAR report received. Patient is a 26 year old male admitted to [facility] on 03/08/17 for Alcohol withdrawal, placed on 5 Day Ativan Taper started on 03/09/17. Patient remains compliant with treatment plan, medications, and diet regime. NKA, Full Code, Cardiac Diet, Fall and Seizures Precautions. Seizures History. Past Medical History: Alcohol use disorder; Sedative hypnotic use disorder; Opioid use disorder; Cocaine use disorder; Cannabis use disorder; Nicotine dependence; S/p kidney transplant. Past Surgical History: Kidney transplant 2012; Left humerus ORIF; Splenectomy; Partial bowel resection. Substance Use: Alcohol: " 2-3 bottles of wine, 750 ml, daily since December,. Last used 2 shot Tequila and 1/2 bottle Red wine on 03/08/17 at 10:30 ". Marijuana since 2006 1/2-3/4 gram daily. Last used 20 mg of eligible and 1 joint on 03/08 at 10:30". Past Hospitalization/Treatment History: "[facility] [place]" in [place], [place], 30 days since 06/25/15". "[facility]" in [place], 6 months on December - May,". Last CIWA decreased from 3: patient 's presented anxious, agitated, with barely sweating, and tremors that can felt. Patient denied N/V, and diarrhea. Patient denied SI/HI. VS WNL. Patient denied pain. Pain level "0/10". PRN Seroquel PO was effective. Patient will discharging today, 03/15/17. UDT results placed on chart. Patient slept 6 hours, intake 1,500 ml, voided x2, stool x1.Safety measure in the place by hospital policy: Call light within reach, bed in the lowest position and locked, padded rails up x2. Patient endorsed to day shift nurse. SBAR report given.
--- NOTE | 2017-03-15 07:30 | NUR ---
start of shift note: received pt from cyber security systems engineer nurse, pt is in stable condition at this time. no s/s of pain or discomfort. pt is admitted to [facility] for ETOH withdrawal/dependence. pt is set to discharge today. will assist pt in discharging and will continue to monitor pt for any changes.
[2017-03-15 08:45] VITALS: BP 150/99
[2017-03-15] MEDS: TACROLIMUS 1 MG CAPSULE PO SCH (08:45)
[2017-03-15] MEDS: THIAMINE HCL 100 MG TABLET PO SCH (08:45)
[2017-03-15] MEDS: GABAPENTIN 300 MG CAPSULE PO SCH (08:45)
[2017-03-15] MEDS: PREDNISONE 5MG TABLET PO SCH (08:45)
[2017-03-15] MEDS: FOLIC ACID 1 MG TABLET PO SCH (08:45)
[2017-03-15] MEDS: MYCOPHENOLATE 500MG PO SCH (08:45)
[2017-03-15] MEDS: AMLODIPINE 5 MG TABLET PO SCH (08:45)
[2017-03-15] MEDS: MULTIVITAMINS,THERAPEUTIC TABLET PO SCH (08:45)
[2017-03-15] MEDS: buPROPion XL 150 MG TAB.SR.24H PO SCH (08:46)
--- NOTE | 2017-03-15 09:00 | NUR ---
discharge note: pt left the unit in stable condition no s/s of pain or discomfort, or any withdrawal symptoms. pt is very hyperactive while discharging. pt teaching was administered and pt verbalized understanding. pt left with all personal belongings and will be transferred home via own transportation
[2017-03-16 00:13] LABS: *CANNABINOID (THC) Positive (.)
== END 2017-03-15 09:00 | disposition home or self-care (01) | DRG 895 ==
LOC: SRC 13:55
PROVIDERS: ADMIT Internal Medicine; ATTEND Internal Medicine
PROC: HZ2ZZZZ Detoxification Services for Substance Abuse Treatment (ICD-10-PCS; principal; 2017-03-08)
PROC: HZ41ZZZ Group Counseling for Substance Abuse Treatment, Behavioral (ICD-10-PCS; 2017-03-10)
PROC: HZ31ZZZ Individual Counseling for Substance Abuse Treatment, Behavioral (ICD-10-PCS; 2017-03-11)
DX: F10.230 Alcohol dependence with withdrawal, uncomplicated (principal); Z94.0 Kidney transplant status; F13.21 Sedative, hypnotic or anxiolytic dependence, in remission; Y90.9 Presence of alcohol in blood, level not specified; Z90.81 Acquired absence of spleen; Z79.899 Other long term (current) drug therapy; F41.0 Panic disorder [episodic paroxysmal anxiety]; I15.9 Secondary hypertension, unspecified; E07.81 Sick-euthyroid syndrome; D72.823 Leukemoid reaction; F12.90 Cannabis use, unspecified, uncomplicated; E83.42 Hypomagnesemia; R79.89 Other specified abnormal findings of blood chemistry; F17.200 Nicotine dependence, unspecified, uncomplicated; F11.21 Opioid dependence, in remission; F14.21 Cocaine dependence, in remission
CPT/HCPCS: 36415; 70030-TC; 80307; 80349; 82306; 83690; 83735; 84100; 84443; 85025; 86580; 86592; 86705; 86803; 87340; 87806; 93005; A4663; G6040-TC; J3411; Q0163